=== PATIENT | female | born 1990 | race Caucasian/White ===

== ENCOUNTER → 2021-12-23 | Outpatient (CLI) | payer SELFPAY ==
[2021-12-23 13:04] LABS: BASOPHILS ABSOLUTE AUTO 0.05 K/mm3 (0.00-0.23); BASOPHILS PERCENT AUTO 1 % (0-2); EOSINOPHILS ABSOLUTE AUTO 0.02 K/mm3 (0.00-0.68); EOSINOPHILS PERCENT AUTO 0 % (0-6); Hematocrit 43.2 % (33.0-51.0); Hemoglobin 15.2 g/dL (11.5-16.0); IMMATURE GRAN ABSOLUTE AUTO 0.03 K/mm3 (0.00-0.10); IMMATURE GRAN PERCENT AUTO 0 % (0-1); LYMPHOCYTES ABSOLUTE AUTO 1.38 K/mm3 (0.84-5.20); LYMPHOCYTES PERCENT AUTO 14 % (21-46); MONOCYTES ABSOLUTE AUTO 0.56 K/mm3 (0.16-1.47); MONOCYTES PERCENT AUTO 6 % (4-13); Mean Corpuscular HGB 34.6 pg (26.0-34.0); Mean Corpuscular HGB Conc 35.2 g/dL (31.5-36.5); Mean Corpuscular Volume 98 fL (80-100); Mean Platelet Volume 10.4 fL (9.1-12.4); NEUTROPHILS ABSOLUTE AUTO 8.11 K/mm3 (1.96-9.15); NEUTROPHILS PERCENT AUTO 80 % (41-73); Platelet Count 275 K/mm3 (150-400); RDW Coefficient Variation 11.9 % (11.7-14.2); RDW Standard Deviation 43.4 fL (35.1-46.3); Red Blood Cell Count 4.39 M/mm3 (3.80-5.20); White Blood Cell Count 10.15 K/mm3 (4.00-11.30)
[2021-12-23 13:20] LABS: Alanine Aminotransfer (ALT/SGP 41 U/L (12-78); Albumin, Blood 4.7 g/dL (3.4-5.0); Albumin/Globulin Ratio 1.4 (0.8-1.8); Alk Phos 75 U/L (40-126); Anion Gap 8 mmol/L (6-16); Aspartate Aminotrans (AST/SGOT 27 U/L (12-37); Bilirubin, Total 0.8 mg/dL (0.1-1.0); Blood Urea Nitrogen 7 mg/dL (8-24); Bun/Creatinine Ratio 10.4 (12.0-20.0); CO2, Blood 28 mmol/L (21-32); Calcium, Blood 9.2 mg/dL (8.5-10.1); Chloride, Blood 98 mmol/L (98-108); Creatinine, Blood 0.67 mg/dL (0.40-1.00); Globulin, Blood 3.4 g/dL (2.2-4.0); Glomerular Filtration Rate >60 (60-); Glucose, Blood 130 mg/dL (70-99); Potassium, Blood 3.6 mmol/L (3.5-5.5); Sodium, Blood 134 mmol/L (136-145); Total Protein, Blood 8.1 g/dL (6.4-8.2)
== END ==
LOC: LAB SHORT 12:59
PROVIDERS: General Practice
DX: R53.81 Other malaise (principal)
CPT/HCPCS: 80053; 85025

== ENCOUNTER → 2022-03-14 | Outpatient (CLI) | payer SELFPAY ==
[2022-03-14 11:54] LABS: BASOPHILS ABSOLUTE AUTO 0.05 K/mm3 (0.00-0.23); BASOPHILS PERCENT AUTO 1 % (0-2); EOSINOPHILS ABSOLUTE AUTO 0.04 K/mm3 (0.00-0.68); EOSINOPHILS PERCENT AUTO 1 % (0-6); Hematocrit 38.5 % (33.0-51.0); Hemoglobin 13.8 g/dL (11.5-16.0); IMMATURE GRAN ABSOLUTE AUTO 0.06 K/mm3 (0.00-0.10); IMMATURE GRAN PERCENT AUTO 1 % (0-1); LYMPHOCYTES PERCENT AUTO 21 % (21-46); MONOCYTES ABSOLUTE AUTO 0.53 K/mm3 (0.16-1.47); MONOCYTES PERCENT AUTO 6 % (4-13); Mean Corpuscular HGB 35.1 pg (26.0-34.0); Mean Corpuscular HGB Conc 35.8 g/dL (31.5-36.5); Mean Corpuscular Volume 98 fL (80-100); Mean Platelet Volume 9.9 fL (9.1-12.4); NEUTROPHILS ABSOLUTE AUTO 5.89 K/mm3 (1.96-9.15); NEUTROPHILS PERCENT AUTO 71 % (41-73); Platelet Count 303 K/mm3 (150-400); RDW Coefficient Variation 12.2 % (11.7-14.2); RDW Standard Deviation 44.2 fL (35.1-46.3); Red Blood Cell Count 3.93 M/mm3 (3.80-5.20); White Blood Cell Count 8.27 K/mm3 (4.00-11.30)
[2022-03-14 12:48] LABS: Albumin, Blood 4.1 g/dL (3.4-5.0); Albumin/Globulin Ratio 1.2 (0.8-1.8); Bilirubin, Total 1.3 mg/dL (0.1-1.0); Calcium, Blood 8.7 mg/dL (8.5-10.1); Creatinine, Blood 0.67 mg/dL (0.40-1.00); Globulin, Blood 3.4 g/dL (2.2-4.0); Potassium, Blood 3.3 mmol/L (3.5-5.5); Thyroid Stimulating Hormone 1.74 uIU/mL (0.360-4.800); Total Protein, Blood 7.5 g/dL (6.4-8.2)
== END ==
LOC: LAB SHORT 11:46
PROVIDERS: Physician Assistant Surgical
DX: I10 Essential (primary) hypertension (principal); R07.9 Chest pain, unspecified
CPT/HCPCS: 80053; 84443; 84484; 85025

== ENCOUNTER 2023-08-28 15:34 | Inpatient (IN) | payer OTHER ==
[~2023-08-28] VITALS: Ht 172.7 cm; Wt 71.0 kg
[2023-08-28 16:56] LABS: BASOPHILS ABSOLUTE AUTO 0.02 K/mm3 (0.00-0.23); BASOPHILS PERCENT AUTO 1 % (0-2); EOSINOPHILS PERCENT AUTO 0 % (0-6); Hemoglobin 7.5 g/dL (11.5-16.0); IMMATURE GRAN ABSOLUTE AUTO 0.03 K/mm3 (0.00-0.10); IMMATURE GRAN PERCENT AUTO 1 % (0-1); LYMPHOCYTES ABSOLUTE AUTO 0.69 K/mm3 (0.84-5.20); LYMPHOCYTES PERCENT AUTO 16 % (21-46); MONOCYTES ABSOLUTE AUTO 0.26 K/mm3 (0.16-1.47); MONOCYTES PERCENT AUTO 6 % (4-13); Mean Corpuscular HGB 34.6 pg (26.0-34.0); Mean Corpuscular HGB Conc 35.7 g/dL (31.5-36.5); Mean Corpuscular Volume 97 fL (80-100); Mean Platelet Volume 10.8 fL (9.1-12.4); NEUTROPHILS ABSOLUTE AUTO 3.35 K/mm3 (1.96-9.15); NEUTROPHILS PERCENT AUTO 77 % (41-73); NRBC ABSOLUTE 0.07 K/mm3 (0.00-0.02); NRBC Auto 1.6 /100 WBC (0.0-0.2); Platelet Count 171 K/mm3 (150-400); RDW Coefficient Variation 11.9 % (11.7-14.2); RDW Standard Deviation 42.3 fL (35.1-46.3); Red Blood Cell Count 2.17 M/mm3 (3.80-5.20); White Blood Cell Count 4.35 K/mm3 (4.00-11.30)
[2023-08-28 17:29] LABS: Albumin, Blood 3.5 g/dL (3.4-5.0); Bilirubin, Total 5.3 mg/dL (0.1-1.0); Bun/Creatinine Ratio 9.2 (12.0-20.0); Calcium, Blood 11.3 mg/dL (8.5-10.1); Creatinine, Blood 0.76 mg/dL (0.40-1.00); Globulin, Blood 3.6 g/dL (2.2-4.0); Potassium, Blood 2.6 mmol/L (3.5-5.5); Total Protein, Blood 7.1 g/dL (6.4-8.2)
[2023-08-28 20:28] VITALS: BP 129/92
[2023-08-28] MEDS ORDERED: HYDPAM25 PO (20:56)
[2023-08-28] MEDS ORDERED: METO25 PO (20:57)
--- NOTE | 2023-08-28 21:00 | NUR ---
ARRIVAL TO PCU 7 PT ARRIVED TO PCU7 AT APPROXIMATELY 2024. PT TRANSFERED FROM ER [facility] TO HOSPITAL BED WITH SBA. PT A&Ox4, ORIENTED TO CALL LIGHT/UNIT, COMMUNICATES NEEDS APPROPRIATELY. BP STABLE, SINUS TACH 100-120's, DENIES CP/PRESSURE. SpO2> 92% RA, DENIES SOB. CIWA 7. BED IN LOWEST POSITION, CALL LIGHT IN REACH, BED ALARM ON.
[2023-08-28 21:18] LABS: Bun/Creatinine Ratio 9.5 (12.0-20.0); Calcium, Blood 10.7 mg/dL (8.5-10.1); Creatinine, Blood 0.73 mg/dL (0.40-1.00)
[2023-08-28 23:08] VITALS: BP 128/91
[2023-08-29] VITALS (13 sets, daily range): BP systolic 111–125; BP diastolic 48–99
[2023-08-29 03:32] LABS: Hemoglobin 6.4 g/dL (11.5-16.0); Mean Corpuscular HGB 34.6 pg (26.0-34.0); Mean Corpuscular HGB Conc 35.6 g/dL (31.5-36.5); Mean Corpuscular Volume 97 fL (80-100); Mean Platelet Volume 10.9 fL (9.1-12.4); NRBC ABSOLUTE 0.07 K/mm3 (0.00-0.02); NRBC Auto 1.5 /100 WBC (0.0-0.2); Platelet Count 147 K/mm3 (150-400); RDW Coefficient Variation 11.9 % (11.7-14.2); RDW Standard Deviation 42.1 fL (35.1-46.3); RETICULOCYTE ABSOLUTE 0.0485 M/mm3 (0.0200-0.1100); RETICULOCYTE COUNT PERCENT 2.62 % (0.50-2.50); Red Blood Cell Count 1.85 M/mm3 (3.80-5.20); White Blood Cell Count 4.59 K/mm3 (4.00-11.30)
[2023-08-29 03:46] LABS: International Normalized Ratio 1.31; Prothrombin Time Results 13.5 Sec (9.7-11.5)
[2023-08-29 04:18] LABS: Percent Saturation 95.2 % (15.0-50.0)
[2023-08-29 04:19] LABS: Thyroid Stimulating Hormone 12.6 uIU/mL (0.360-4.800)
[2023-08-29 04:47] LABS: Albumin, Blood 3.1 g/dL (3.4-5.0); Albumin/Globulin Ratio 1.1 (0.8-1.8); Bilirubin, Total 4.7 mg/dL (0.1-1.0); Bun/Creatinine Ratio 8.5 (12.0-20.0); Calcium, Blood 10.4 mg/dL (8.5-10.1); Creatinine, Blood 0.7 mg/dL (0.40-1.00); Globulin, Blood 2.9 g/dL (2.2-4.0); Magnesium, Blood 1.1 mg/dL (1.6-2.4); Phosphorus, Blood 0.4 mg/dL (2.5-4.9); Potassium, Blood 2.8 mmol/L (3.5-5.5)
--- NOTE | 2023-08-29 05:06 | NUR ---
SHIFT SUMMARY SEE PREVIOUS NOTE. PT A&Ox4, CALLS AND COMMUNICATES NEEDS APPROPRIATELY. BP STABLE, SR-ST 90-110's, DENIES CP/PRESSURE. SpO2> 92% RA, DENIES SOB. CIWA 6-11, MEDICATED PER EMAR. CONTINENT OF URINE, NO BM THIS SHIFT. 1 ASSIST TO BATHROOM. NO S/S OF BLEEDING. NO OTHER EVENTS, WILL REPORT TO ONCOMING RN.
[2023-08-29 10:14] LABS: BASOPHILS ABSOLUTE AUTO 0.03 K/mm3 (0.00-0.23); BASOPHILS PERCENT AUTO 1 % (0-2); EOSINOPHILS ABSOLUTE AUTO 0.01 K/mm3 (0.00-0.68); EOSINOPHILS PERCENT AUTO 0 % (0-6); Hematocrit 26.1 % (33.0-51.0); Hemoglobin 9.4 g/dL (11.5-16.0); IMMATURE GRAN PERCENT AUTO 2 % (0-1); LYMPHOCYTES ABSOLUTE AUTO 0.82 K/mm3 (0.84-5.20); LYMPHOCYTES PERCENT AUTO 15 % (21-46); MONOCYTES ABSOLUTE AUTO 0.38 K/mm3 (0.16-1.47); MONOCYTES PERCENT AUTO 7 % (4-13); Mean Corpuscular HGB 34.3 pg (26.0-34.0); Mean Corpuscular Volume 95 fL (80-100); Mean Platelet Volume 10.9 fL (9.1-12.4); NEUTROPHILS ABSOLUTE AUTO 4.21 K/mm3 (1.96-9.15); NEUTROPHILS PERCENT AUTO 76 % (41-73); NRBC Auto 1.8 /100 WBC (0.0-0.2); Platelet Count 157 K/mm3 (150-400); RDW Coefficient Variation 13.4 % (11.7-14.2); RDW Standard Deviation 46.3 fL (35.1-46.3); Red Blood Cell Count 2.74 M/mm3 (3.80-5.20); White Blood Cell Count 5.55 K/mm3 (4.00-11.30)
--- NOTE | 2023-08-29 10:49 | NUR ---
PATIENT ALERT TO SELF, FAMILY, AND PLACE. AT TIMES VERY CONFUSED AND TRYING TO GET OUT OF BED. MOM AT BEDSIDE. DURING THIS AM ASSESSMENT PATIENT DENIES OVERALL PAIN. DENIES NUMBNESS/TINGLING. UP WITH 2 PERSON ASSIST TO STAND AND PIVOT TO [facility] [place] VERY UNSTEADY ON FEET. BED ALARM IN PLACE. CIWA SCORING 8-14 AT THIS TIME. PATIENT HAVING TREMORS, CONFUSION, AGITATION, ANXIETY, SLIGHT HEADACHE AND OCCASIONAL NAUSEA. SEE CIWA SCORING AND EMAR FOR PO LIBRIUM AND IV ATIVAN ADMINISTRATION. PATIENT AT THIS POINT HAS CLAMED SLIGHTLY AND HAS STOPPED PULLING AT LINES AND CORDS. MOM REMAINS AT BEDSIDE. PATIENT REPORTS DRINKING 12 SELTZERS PER DAY WELL A LARGE AMOUNT OF VODKA. TELE SHOWING SR/ST WITH HR 90-110'S, UP TO 140'S WITH SEVERE AGITATION. BP STABLE. PPP. DENIES CHEST PAIN/PRESSURE/PALPITATION. ON ROOM AIR, CONTINUOUS PULSE OX READING 96-100%. EVEN AND UNLABORED BREATHING. LUNGS SOUNDING CLEAR. DENIES ABDOMINAL PAIN/NAUSEA. BOWEL TONES PRESENT. VOIDING WNL. POOR APPEATITE, ONLY EATING 10% BREAKFAST THIS AM. SWALLOWING PILLS SAFELY AT THIS TIME. SCATTERED BRUISING, REPORTED FROM MULTIPLE FALLS. LARGE BRUISE TO LEFT RIBS/BACK.
--- NOTE | 2023-08-29 11:27 | NUR ---
PATIENT CIWA SCORING 15 AT THIS TIME. PATIENT CONTINUALLY PULLING AT LINES/CORDS, TRYING TO GET OUT OF BED, EXPRESSING ANXIETY AND AGITATION. DR. NASH CALLED TO EXPAND ATIVANA ND LIBRIUM ORDER SET. IV ATIVAN AND PO LIBRIUM GIVEN. WILL CONTINUE TO MONITOR ADA CIWA SCORING. THIS RN AT BEDSIDE.
--- NOTE | 2023-08-29 13:21 | NUR ---
PATIENT CIWA TRENDING DOWN 7-8 AT THIS TIME. FAMILY REMAINS AT BEDSIDE. VITAL SIGNS REMAIN STABLE. NS INFUSING PER EMAR.
--- NOTE | 2023-08-29 14:14 | NUR ---
PATIENT SLEEPING AT THIS TIME. FAMILY REMAINS AT BEDSIDE.
--- NOTE | 2023-08-29 16:02 | NUR ---
PATIENT CONTINUES TO BE SLEEPY/DROWSY AT THIS TIME. VITALS SIGNS STABLE. FAMILY REMAINS AT BEDSIDE. OCCASIONAL STIRRING AND SHIFTING IN BED. NS CONTINUES TO INFUSE PER EMAR.
--- NOTE | 2023-08-29 18:14 | NUR ---
SHIFT SUMMARY: SEE PREVIOUS NOTES FOR UPDATES. PATIENT MEDICATED THROUGHOUT SHIFT PER CIWA SCORE/ALCOHOL WITHDRAWL SYMPTOMS. PATIENT SLEEPING AT THIS TIME. CONTINUES TO BE VERY AGITATED, ANXIOUS AND CONFUSED WHEN AWAKE PULLING AT LINES/CORDS AND TRYING TO GET OUT OF BED. BED ALARM REMAINS ON. FAMILY REMAINS AT BEDSIDE THROUGHOUT SHIFT. VITAL SIGNS STABLE. HR 90-110'S. SR/ST. ON ROOM AIR SATING ABOVE 95%. BP STABLE. USING BEDPAN NEEDED. ATTENDS IN PLACE. CALL LIGHT IN REACH. BED IN LOW LOCKED POSITION. SEIZURE PRECAUTIONS IN PLACE.
--- NOTE | 2023-08-29 20:30 | NUR ---
ASSUMPTION OF CARE / CIWA / MOVE FROM PCU7 TO PCU9 PT SLEEPING DURING BEDSIDE SHIFT REPORT. FAMILY AT BEDSIDE. AT APPROXIMATELY 1999, PT SET OFF BEDALARM. PT CONFUSED AND AGITATED TRYING TO GET OUT OF BED AND RIPPING AT LINES AND GOWN. ADMINISTERED LIBRIUM & ATIVAN PER CIWA, SEE EMAR. TRANSFERED PT TO PCU 9 TO BE CLOSER TO NURSES STATION. BP STABLE, SINUS TACH 100's, UP TO 150's WHEN AGITIATED, DENIES CP/PRESSURE. SpO2> 92% RA, DENIES SOB. PT NOT DIRECTABLE OR ABLE TO BE REORIENTED. AT APPROXIMATELY 2140 STILL TRYING GET OUT OF BED AND IS STILL AGITATED AND CONFUSED. MULTPILE STAFF IN ROOM TRYING TO CALM PT DOWN. ADMINISTED ATIVAN PER CIWA, SEE EMAR. PHYSICIAN NOTIFIED THAT PT IS NEARING MAX AMOUNT OF ATIVAN AND LIBRIUM FOR A 24hr PERIOD, ORDERS PLACED. BED IN LOWEST POSITION, CALL LIGHT IN REACH, BED ALARM ON.
[2023-08-30] VITALS (64 sets, daily range): BP systolic 70–121; BP diastolic 51–91
--- NOTE | 2023-08-30 03:30 | NUR ---
PT ARRIVES TO ROOM ICU 6 FROM PCU 9 AT 0258 THIS MORNING. REPORT RECEIVED AT BEDSIDE. PT SLIDE TRANSFERED TO BED. PT NEEDS COACHING TO REMAIN CALM, AND WITH BEING SITUATED IN BED AND APPLICATION OF MONITORING. PT ARRIVES WITH LOCKED RESTRAINTS. PUREWICK PLACED SECONDARY TO PT BECOMING INCONTINENT TO URINE. WILL REVIEW CHART AND PLAN OF CARE FOR THIS PT.
[2023-08-30 04:27] LABS: Hematocrit 22.2 % (33.0-51.0); Hemoglobin 7.9 g/dL (11.5-16.0); Mean Corpuscular HGB 33.9 pg (26.0-34.0); Mean Corpuscular HGB Conc 35.6 g/dL (31.5-36.5); Mean Corpuscular Volume 95 fL (80-100); Mean Platelet Volume 10.6 fL (9.1-12.4); NRBC ABSOLUTE 0.05 K/mm3 (0.00-0.02); NRBC Auto 0.8 /100 WBC (0.0-0.2); Platelet Count 171 K/mm3 (150-400); RDW Coefficient Variation 14.4 % (11.7-14.2); RDW Standard Deviation 48.8 fL (35.1-46.3); Red Blood Cell Count 2.33 M/mm3 (3.80-5.20); White Blood Cell Count 6.12 K/mm3 (4.00-11.30)
--- NOTE | 2023-08-30 04:35 | NUR ---
TRANSFER TO ICU 6 SEE PREVIOUS NOTE. PTs CIWA 20's, MEDICATED PER EMAR. PT REFUSING TO TAKE PILLS AND HAS REACHED 23mg IN 24hrs AND IS REQUIRING MORE MEDICATION. PHYSICIAN NOTIFIED, ORDERS PLACED TO TRANSFER PT TO ICU. MEDICAL ASSEMBLER CALLED TO NOTIFY FAMILY OF TRANSFER. ALL PT BELONGINGS GATHERED, TRANSFERED PT VIA HOSPITAL BED BY 3 CLINICAL STAFF MEMEBERS. REPORT GIVEN TO CREATIVE DESIGNER AT BEDSIDE.
[2023-08-30 05:07] LABS: Free Thyroxine 1.08 ng/dL (0.70-1.60); Magnesium, Blood 1.7 mg/dL (1.6-2.4)
[2023-08-30 05:28] LABS: Albumin, Blood 2.9 g/dL (3.4-5.0); Blood Urea Nitrogen 3 mg/dL (8-24); CO2, Blood 32 mmol/L (21-32); Chloride, Blood 100 mmol/L (98-108); Glomerular Filtration Rate 121 (60-); Glucose, Blood 118 mg/dL (70-99); Potassium, Blood 2.7 mmol/L (3.5-5.5)
[2023-08-30 05:30] LABS: Anion Gap 6 mmol/L (6-16); Phosphorus, Blood 0.4 mg/dL (2.5-4.9); Sodium, Blood 138 mmol/L (136-145)
--- NOTE | 2023-08-30 05:59 | NUR ---
PLACED PT TO PRECEDEX DRIP AT 0.4 MCG'S/KG/HOUR. PT CURRENTLY RESTING IN BED. STARTED PERIPHERAL IV IN RIGHT FOREARM. NO VOID OF YET SINCE ARRIVAL TO UNIT. PT'S PHOS AND POTASSIUM LEVEL LOW. CALL TO DR EMERY. ORDERS RECEIVED. WILL CONTINUE TO MONITOR PT, AND WILL REPORT OFF TO ONCOMING RN.
--- NOTE | 2023-08-30 08:26 | NUR ---
[place] of Care: Care assumed at 0700hr. Patient sleeping/sedated with precedex gtt at 0.4 mcg/kg/hr. Patient attempts to open eyes to verbal stimuli, moves all extremities. Otherwise not following any commands. Will decrease precedex gtt to better assess neuro status and ETOH withdrawal. Peripheral IV's x2 patent and intact. Purwick urinary device in place, draining clear yellow urine. Dr. walker to bedside this morning. Received order to d/c PO medications and order IV Thiamine 100mg daily. Will continue to monitor.
[2023-08-30 14:12] LABS: Magnesium, Blood 1.6 mg/dL (1.6-2.4)
[2023-08-30 14:21] LABS: Potassium, Blood 3.8 mmol/L (3.5-5.5)
[2023-08-30 14:22] LABS: Phosphorus, Blood 3.4 mg/dL (2.5-4.9)
--- NOTE | 2023-08-30 17:40 | NUR ---
Shift Summary: Patient showed significant improvement throughout shift. This morning, patient very sedated and minimally responsive on precedex at 0.4mcg/kg/hr. Precedex titrated down, then off at approx [phone], remained off precedex gtt for remainder of shift. Patient then able to rouse, remains drowsy when awake but oriented to self, place, and situation. Slightly agitated with staff and occasionally not following directions, but overall cooperative with care/directions. X2 prn librium and x1 prn Ativan given with good effect. Ate approx 15-255 of meals without difficulty. Voided using bed-king without difficulty. Family at bedside. Will continue to monitor until report to NOC shift RN.
[2023-08-31] VITALS (10 sets, daily range): BP systolic 98–124; BP diastolic 73–105
[2023-08-31 04:26] LABS: Hematocrit 24.9 % (33.0-51.0); Hemoglobin 8.4 g/dL (11.5-16.0); Mean Corpuscular HGB 33.6 pg (26.0-34.0); Mean Corpuscular HGB Conc 33.7 g/dL (31.5-36.5); Mean Platelet Volume 10.4 fL (9.1-12.4); NRBC ABSOLUTE 0.11 K/mm3 (0.00-0.02); NRBC Auto 1.4 /100 WBC (0.0-0.2); Platelet Count 214 K/mm3 (150-400); RDW Coefficient Variation 14.9 % (11.7-14.2); RDW Standard Deviation 54.3 fL (35.1-46.3); White Blood Cell Count 7.74 K/mm3 (4.00-11.30)
[2023-08-31 04:42] LABS: Mean Corpuscular Volume 100 fL (80-100)
[2023-08-31 05:03] LABS: Albumin, Blood 2.9 g/dL (3.4-5.0); Anion Gap 7 mmol/L (6-16); Blood Urea Nitrogen 3 mg/dL (8-24); Bun/Creatinine Ratio 4.8 (12.0-20.0); CO2, Blood 32 mmol/L (21-32); Calcium, Blood 8.3 mg/dL (8.5-10.1); Chloride, Blood 101 mmol/L (98-108); Creatinine, Blood 0.63 mg/dL (0.40-1.00); Glomerular Filtration Rate 119 (60-); Glucose, Blood 128 mg/dL (70-99); Magnesium, Blood 1.4 mg/dL (1.6-2.4); Phosphorus, Blood 2.1 mg/dL (2.5-4.9); Potassium, Blood 3.1 mmol/L (3.5-5.5); Sodium, Blood 140 mmol/L (136-145)
--- NOTE | 2023-08-31 06:28 | NUR ---
END OF SHIFT SUMMARY A/O X3. WAKES FROM SLEEP SLIGHTLY CONFUSED. EASILY REORIENTED. VSS. SINUS TACHY MOST OF THE NIGHT WITH HR 100'S TO 130'S DEPENDING ON PT MOVEMENT OR BEING AWAKE. CIWA OF 8 MID SHIFT WITH TREMORS AND HALLUCINATION OF FOOD. OTHERWISE CIWA OF 0-1. PT GETS VERY AGITATED IF ASKED TO USE BEDPAN. PT IS UNSTABLE ON FEET REQUIRING 2 STAFF MEMBERS TO TRANSFER TO BEDSIDE COMMODE. NO OTHER CHANGES THIS SHIFT. WILL CONTINUE TO MONITOR UNTIL REPORT GIVEN TO AM RN.
--- NOTE | 2023-08-31 12:55 | NUR ---
REASSESSMENT/TRANSFER PT SPENT THE MORNING SITTING UP IN THE CHAIR. SHE IS AWAKE AND ORIENTED , BUT GROGGY AND SLOW IN HER MOVEMENTS. HER CIWAA WAS 5, BUT PT IS STILL HAVING TREMORS SO MEDICATED WITH LIBRIUM THIS MORNING TO MAINTAIN CONTROL OF HER WITHDRAWAL SYMPTOMS. LUNGS ARE CLEAR, RA, BP STABLE, SINUS TACH WITH RATE IN THE LOW 100S AT REST, UP TO 1TEENS WITH ACTIVITY. EATING ABOUT 10% OF DIET. CONTINENT OF URINE. DR. RAYMOND ROUNDED ON PT TODAY AND MADE PT PCU STATUS. REPORT GIVEN TO LIDA LEMONS. PT TRANSFERRED VIA WC TO PCU 19. PT'S MOM AT THE BEDSIDE AND AWARE OF TRANSFER.
--- NOTE | 2023-08-31 17:45 | NUR ---
PT TRANSFERRED TO THE ROOM AT APPROX 1300, PT ALERT AND ORIENTED X3, FAMILY AT THE BEDSIDE ALERNATING VISITS. VITALS HRR SR 90-100'S, SBP 90-100'S, SATS ABOVE 95% ON RA AFEBRILE. PT RESTED MOSTLY FOR THE REST OF THE SHIFT, PER PT'S MOTHER PT HASNT SLEPT WELL SINCE LAST NIGHT. LAST CIWA AT 3. PT HAS BEEN CALLING AND ANSWERING QUESTIONS APPROPRIATELY. NO COMPLAINTS AT THIS TIME. CALL LIGHTS IN REACH WILL REPORT TO ONCOMING SHIFT
[2023-09-01 04:00] VITALS: BP 107/78
[2023-09-01 04:51] LABS: BASOPHILS ABSOLUTE AUTO 0.05 K/mm3 (0.00-0.23); BASOPHILS PERCENT AUTO 1 % (0-2); EOSINOPHILS ABSOLUTE AUTO 0.01 K/mm3 (0.00-0.68); EOSINOPHILS PERCENT AUTO 0 % (0-6); Hematocrit 24.1 % (33.0-51.0); Hemoglobin 8.1 g/dL (11.5-16.0); IMMATURE GRAN ABSOLUTE AUTO 0.07 K/mm3 (0.00-0.10); IMMATURE GRAN PERCENT AUTO 1 % (0-1); LYMPHOCYTES ABSOLUTE AUTO 1.18 K/mm3 (0.84-5.20); LYMPHOCYTES PERCENT AUTO 17 % (21-46); MONOCYTES ABSOLUTE AUTO 0.84 K/mm3 (0.16-1.47); MONOCYTES PERCENT AUTO 12 % (4-13); Mean Corpuscular HGB 33.8 pg (26.0-34.0); Mean Corpuscular HGB Conc 33.6 g/dL (31.5-36.5); Mean Corpuscular Volume 100 fL (80-100); NEUTROPHILS PERCENT AUTO 70 % (41-73); NRBC ABSOLUTE 0.07 K/mm3 (0.00-0.02); Platelet Count 230 K/mm3 (150-400); RDW Coefficient Variation 16.1 % (11.7-14.2); RDW Standard Deviation 56.2 fL (35.1-46.3); White Blood Cell Count 7.05 K/mm3 (4.00-11.30)
[2023-09-01 05:20] LABS: Albumin, Blood 2.7 g/dL (3.4-5.0); Albumin/Globulin Ratio 0.9 (0.8-1.8); Bilirubin, Total 6.3 mg/dL (0.1-1.0); Bun/Creatinine Ratio 5.3 (12.0-20.0); Creatinine, Blood 0.57 mg/dL (0.40-1.00); Magnesium, Blood 1.8 mg/dL (1.6-2.4); Phosphorus, Blood 3.6 mg/dL (2.5-4.9); Potassium, Blood 3.2 mmol/L (3.5-5.5); Total Protein, Blood 5.7 g/dL (6.4-8.2)
--- NOTE | 2023-09-01 05:26 | NUR ---
SHIFT SUMMARY PT LETHARGIC THROUGHOUT SHIFT BUT ABLE TO ANSWER MOST ORIENTATION QUESTIONS. PT SAT OF BED ALARM MULTIPLE TIMES DURING SHIFT SHE WOULD CONSTANTLY TRY TO SIT AT EOB OR REACH FOR ITEMS ON TABLE, BED ALARM VERY SENSITIVE. PT ABLE TO STAND TO AMBULATE TO BS VIA [place] AND 2 STAFF MEMBERS, GAIT WEAK AND IMPAIRED, TOLERATED FAIR. PT VSS THROUGHOUT SHIFT. NO REPORT OF CHEST PAIN/PRESSURE. NO REPORT OF SOB/DYPNEA. PT CIWAS RANGED 3-4. NS RUNNING PER ORDER. NO ACCUTE EVENTS DURING SHIFT.
[2023-09-01 07:38] VITALS: BP 114/85
[2023-09-01] MEDS ORDERED: MULVITA PO ×2 (12:04)
[2023-09-01] MEDS ORDERED: B-1100 M1 PO (12:09)
--- NOTE | 2023-09-01 13:14 | NUR ---
PT DISCHARGE TO HOME WITH HOME HEALTH ORDERS, PHYSICAL THERAPIST ABLE TO WORK WITH THE PT, RECOMMENDED HOME HEALTH AND PT'S FAMILY'S ASSISTANCE 24HRS/DAY. PT'S SISTER CAME TO PRICING SUPERVISOR PT VERIFIED THAT PT HAS FAMILY'S ASSISTANCE AND EQUIPMENTS SHE NEEDED AT HOME. PT CIWA HAS BEEN 4-5. PT COOPERATIVE WITH CARES, VITALS HAS BEEN STABLE. 1PA FOR TRANSFERS VIA WALKER. PRESCRIPTION SENT TO [facility], INSTRUCTION DISCLOSED WITH BOTH PT AND SISTER AT THE BEDSIDE. LAB FF-UP FOR BMP AND MG 09/04/23, AND FF-UP WITH PCP. PT ACCOMPANIED VIA WHEELCHAIR FOR TRANSFER ALL BELONGINGS SENT WITH THE PT.
== END 2023-09-01 12:23 | disposition home health service (06) | DRG 897 ==
LOC: ER 15:34 → PCU 18:27 → ICUE 08-30 03:00 → PCU 08-31 13:07
PROVIDERS: Family Medicine; Hospitalist; Physician Assistant; ADMIT Internal Medicine
PROC: HZ2ZZZZ Detoxification Services for Substance Abuse Treatment (ICD-10-PCS; principal; 2023-08-28)
PROC: 30233N1 Transfusion of Nonautologous Red Blood Cells into Peripheral Vein, Percutaneous Approach (ICD-10-PCS; 2023-08-28)
DX: F10.131 Alcohol abuse with withdrawal delirium (principal); E87.1 Hypo-osmolality and hyponatremia; E83.42 Hypomagnesemia; E87.6 Hypokalemia; E83.39 Other disorders of phosphorus metabolism; D64.9 Anemia, unspecified; R94.5 Abnormal results of liver function studies; W19.XXXA Unspecified fall, initial encounter; R74.01 Elevation of levels of liver transaminase levels; I10 Essential (primary) hypertension; F41.9 Anxiety disorder, unspecified; F17.210 Nicotine dependence, cigarettes, uncomplicated
CPT/HCPCS: 36415; 76705; 80048; 80053; 80069; 82607; 82728; 82746; 83540; 83550; 83735; 84100; 84132; 84439; 84443; 85025; 85027; 85045; 85610; 86850; 86900; 86901; 86923; 96361; 96365; 97110; 97116; 97162; 97530; 99285-25; A9270; J2060; J2560; J3411; J3475; J3480; J7030; J7040; J7050; J7060; J7070; P9016

== ENCOUNTER 2023-09-20 15:38 | Inpatient (IN) | payer OTHER ==
[~2023-09-20] VITALS: Ht 172.7 cm; Wt 79.0 kg
[~2023-09-20 15:38] MED LIST: B-1100 M1 PO; HYDPAM25 PO; METO25 PO; MULVITA PO
[2023-09-20 16:44] LABS: BASOPHILS PERCENT AUTO 1 % (0-2); EOSINOPHILS ABSOLUTE AUTO 0.07 K/mm3 (0.00-0.68); EOSINOPHILS PERCENT AUTO 0 % (0-6); IMMATURE GRAN ABSOLUTE AUTO 0.19 K/mm3 (0.00-0.10); IMMATURE GRAN PERCENT AUTO 1 % (0-1); LYMPHOCYTES PERCENT AUTO 9 % (21-46); MONOCYTES ABSOLUTE AUTO 0.91 K/mm3 (0.16-1.47); MONOCYTES PERCENT AUTO 5 % (4-13); Mean Corpuscular HGB 31.8 pg (26.0-34.0); Mean Corpuscular HGB Conc 32.1 g/dL (31.5-36.5); Mean Corpuscular Volume 99 fL (80-100); Mean Platelet Volume 9.8 fL (9.1-12.4); NEUTROPHILS ABSOLUTE AUTO 17.24 K/mm3 (1.96-9.15); NEUTROPHILS PERCENT AUTO 85 % (41-73); Platelet Count 579 K/mm3 (150-400); RDW Coefficient Variation 16.5 % (11.7-14.2); RDW Standard Deviation 60.2 fL (35.1-46.3); Red Blood Cell Count 2.83 M/mm3 (3.80-5.20); White Blood Cell Count 20.41 K/mm3 (4.00-11.30)
[2023-09-20 17:04] LABS: Albumin, Blood 2.1 g/dL (3.4-5.0); Albumin/Globulin Ratio 0.5 (0.8-1.8); Bilirubin, Total 3.5 mg/dL (0.1-1.0); Bun/Creatinine Ratio 8.7 (12.0-20.0); Calcium, Blood 8.3 mg/dL (8.5-10.1); Creatinine, Blood 0.46 mg/dL (0.40-1.00); Globulin, Blood 4.3 g/dL (2.2-4.0); Potassium, Blood 3.5 mmol/L (3.5-5.5); Total Protein, Blood 6.4 g/dL (6.4-8.2)
[2023-09-20 17:55] LABS: Source, Urine Clean Catch
[2023-09-20 18:01] LABS: Appearance, Urine Clear (Clear); Blood, Urine Neg (Neg); Color, Urine Amber (P-Yellow); Glucose Qualitative, Urine Neg (Neg); Ketones, Urine Neg (Neg); Leukocyte Esterase, Urine 1+ (Neg); Nitrite, Urine Pos (Neg); Protein, Urine 2+ (Neg); Specific Gravity, Urine 1.025 (1.003-1.022); Urobilinogen, Urine 2+ (Normal)
[2023-09-20 18:13] LABS: Bilirubin, Urine 1+ (Neg)
[2023-09-20 18:14] LABS: Bacteria Many /hpf; Red Blood Cells, Urine 0-2 /hpf (0-2); Squamous Epithelial Cells Few /hpf (Few)
[2023-09-20 23:01] LABS: International Normalized Ratio 1.27; Prothrombin Time Results 13.2 Sec (9.7-11.5)
[2023-09-20 23:04] LABS: U Amphetamine Screen Not Detected; U Barbituate Screen DETECTED; U Benzodiazapine Screen DETECTED; U Buprenorphine Screen Not Detected; U Cannabinoids Screen DETECTED; U Cocaine Screen Not Detected; U Methadone Screen Not Detected; U Methamphetamine Screen Not Detected; U Opiates Screen Not Detected; U Oxycodone Screen Not Detected; U Phencyclidine Screen Not Detected
[2023-09-20 23:06] LABS: Ethanol (Alcohol), Blood, Med <3 mg/dL; Magnesium, Blood 1.9 mg/dL (1.6-2.4)
[2023-09-21 03:13] LABS: BASOPHILS ABSOLUTE AUTO 0.07 K/mm3 (0.00-0.23); BASOPHILS PERCENT AUTO 0 % (0-2); EOSINOPHILS ABSOLUTE AUTO 0.04 K/mm3 (0.00-0.68); EOSINOPHILS PERCENT AUTO 0 % (0-6); Hemoglobin 9.2 g/dL (11.5-16.0); IMMATURE GRAN PERCENT AUTO 1 % (0-1); LYMPHOCYTES ABSOLUTE AUTO 1.49 K/mm3 (0.84-5.20); LYMPHOCYTES PERCENT AUTO 8 % (21-46); MONOCYTES PERCENT AUTO 4 % (4-13); Mean Corpuscular HGB 31.8 pg (26.0-34.0); Mean Corpuscular HGB Conc 32.9 g/dL (31.5-36.5); Mean Corpuscular Volume 97 fL (80-100); Mean Platelet Volume 9.7 fL (9.1-12.4); NEUTROPHILS ABSOLUTE AUTO 16.11 K/mm3 (1.96-9.15); NEUTROPHILS PERCENT AUTO 87 % (41-73); Platelet Count 569 K/mm3 (150-400); RDW Coefficient Variation 16.7 % (11.7-14.2); RDW Standard Deviation 58.3 fL (35.1-46.3); Red Blood Cell Count 2.89 M/mm3 (3.80-5.20); White Blood Cell Count 18.61 K/mm3 (4.00-11.30)
[2023-09-21 03:27] LABS: International Normalized Ratio 1.31; Prothrombin Time Results 13.5 Sec (9.7-11.5)
[2023-09-21 03:44] LABS: Albumin, Blood 2.1 g/dL (3.4-5.0); Albumin/Globulin Ratio 0.5 (0.8-1.8); Bilirubin, Total 3.5 mg/dL (0.1-1.0); Calcium, Blood 8.2 mg/dL (8.5-10.1); Creatinine, Blood 0.37 mg/dL (0.40-1.00); Globulin, Blood 4.4 g/dL (2.2-4.0); Potassium, Blood 3.9 mmol/L (3.5-5.5); Total Protein, Blood 6.5 g/dL (6.4-8.2)
[2023-09-21 08:05] VITALS: BP 127/98
[2023-09-21] MEDS ORDERED: GABA300 PO (08:20)
[2023-09-21] MEDS ORDERED: OMEP20ER PO (08:21)
--- NOTE | 2023-09-21 13:08 | NUR ---
SPOKE WITH DR. ACOSTA PATIENT C/O PAIN, DOCTOR NOTIFIED. HE SAID HE WOULD EVALUATE AND PLACE ORDERS NEEDED. ALSO ASKED IF THE PATIENT WILL BE HAVING A PARACENTESIS TODAY. PLAN IS TO WAIT AND RE-EVALUATE TOMORROW 09/22/23. PHARMACY NOTIFIED AND THEY WILL CANCEL ALBUMIN AND REORDER WHEN PARACENTESIS IS ORDERED.
[2023-09-21 15:18] VITALS: BP 128/94
--- NOTE | 2023-09-21 18:10 | NUR ---
SHIFT SUMMARY: PT IS A 33 YEAR OLD FEMALE HERE FOR SBP AND ACITES; POSSIBLE UTI. BEING TREATED WTIH IV ANTIBIOTICS. SHE STATES THAT SHE QUIT DRINKING ALCOHOL ABOUT A MONTH AGO AND IS FEELING MUCH BETTER. PARACENTESIS IS PENDING DUE TO PLAN TO RE-EVALUTE TOMORROW 09/22. SHE USES A FWW AT BASELINE AND MOVES INDEPENDENTLY THROUGHOUT HER ROOM. SHE C/O ABD AND LOWER BACK PAIN AND IS BEING TREATED WITH MEDICATION IN EMAR NEEDED. SHE IS ALERT AND ORIENTED X4, PLEASANT AND COOPERATIVE, AND USES CALL LIGHT APPROPRIATELY. FAMILY AND BEEN VISITING THROUGHOUT THE SHIFT. SHE IS IN BED, CALL LIGHT WITHIN REACH, NO SIGNS OR SYMPTOMS OF DISTRESS. PLAN OF CARE ONGOING.
[2023-09-21 19:23] VITALS: BP 134/99
[2023-09-22 03:37] VITALS: BP 128/85
[2023-09-22 05:27] LABS: BASOPHILS ABSOLUTE AUTO 0.08 K/mm3 (0.00-0.23); BASOPHILS PERCENT AUTO 1 % (0-2); EOSINOPHILS ABSOLUTE AUTO 0.21 K/mm3 (0.00-0.68); EOSINOPHILS PERCENT AUTO 1 % (0-6); Hematocrit 24.3 % (33.0-51.0); Hemoglobin 7.7 g/dL (11.5-16.0); IMMATURE GRAN ABSOLUTE AUTO 0.12 K/mm3 (0.00-0.10); IMMATURE GRAN PERCENT AUTO 1 % (0-1); LYMPHOCYTES ABSOLUTE AUTO 2.09 K/mm3 (0.84-5.20); LYMPHOCYTES PERCENT AUTO 14 % (21-46); MONOCYTES ABSOLUTE AUTO 0.84 K/mm3 (0.16-1.47); MONOCYTES PERCENT AUTO 5 % (4-13); Mean Corpuscular HGB 31.2 pg (26.0-34.0); Mean Corpuscular HGB Conc 31.7 g/dL (31.5-36.5); Mean Corpuscular Volume 98 fL (80-100); Mean Platelet Volume 9.8 fL (9.1-12.4); NEUTROPHILS ABSOLUTE AUTO 12.09 K/mm3 (1.96-9.15); NEUTROPHILS PERCENT AUTO 78 % (41-73); Platelet Count 526 K/mm3 (150-400); RDW Coefficient Variation 16.3 % (11.7-14.2); RDW Standard Deviation 59.4 fL (35.1-46.3); Red Blood Cell Count 2.47 M/mm3 (3.80-5.20); White Blood Cell Count 15.43 K/mm3 (4.00-11.30)
--- NOTE | 2023-09-22 05:53 | NUR ---
Rn shift summary: Patient is alert and oriented. She has done well tonight. Patient was medicated x2 Dilaudid 2 mg p.O. for abdominal and back pain with good relief and has rested after meds given. Pt taking water and tea for intake. No c/o nausia. Patient uses walker to ambulate to the BR which is her baseline. Abdomen is mod distended, active bowel tones. Calls appropriately. Will continue to monitor.
[2023-09-22 06:24] LABS: Albumin, Blood 1.8 g/dL (3.4-5.0); Albumin/Globulin Ratio 0.5 (0.8-1.8); Bilirubin, Total 2.8 mg/dL (0.1-1.0); Bun/Creatinine Ratio 10.7 (12.0-20.0); Calcium, Blood 8.1 mg/dL (8.5-10.1); Creatinine, Blood 0.38 mg/dL (0.40-1.00); Globulin, Blood 3.8 g/dL (2.2-4.0); Potassium, Blood 3.8 mmol/L (3.5-5.5); Total Protein, Blood 5.6 g/dL (6.4-8.2)
[2023-09-22 08:47] VITALS: BP 111/87
[2023-09-22 13:09] LABS: Albumin, Body Fluid 0.5 g/dL; Protein, Body Fluid 1.3 g/dL
[2023-09-22 13:14] LABS: Automated BF WBC Count 0.126 K/mm3 (0-999)
[2023-09-22 15:23] VITALS: BP 121/86
[2023-09-22 15:48] LABS: Body Fluid WBC Count 126 /mm3 (0-999)
[2023-09-22 18:04] LABS: Lactate Dehydrogenase, Body Fl 50 U/L
[2023-09-22 18:10] LABS: Glucose, Body Fluid 133 mg/dL
--- NOTE | 2023-09-22 18:20 | NUR ---
SHIFT SUMMARY: PT A&O X4. PLEASANT AND COOPERATIVE WITH CARE. PT RECEIVED IV ABX WELL PERICENTESIS THIS SHIFT REMOVING 1.6L. PT STATED SHE TOLERATED PROCEDURE WELL. C/O 7/10 PAIN ONCE THIS SHIFT IN ABD AND LOWER BACK. MEDICATED PER EMAR. INDEPENDENT WITH WALKER IN ROOM AND HALLS. CALL LIGHT IN REACH. BED IN LOWEST POSITION.
[2023-09-22 18:35] LABS: Color, Body Fluid Yellow (None-Yellow); Total Cell Count, Body Fluid 100
[2023-09-22 18:36] LABS: Appearance, Body Fluid Clear (Clear); RBC Count, Body Fluid 5 /mm3 (0-0)
[2023-09-22 19:34] VITALS: BP 127/91
[2023-09-22 19:50] LABS: pH, Body Fluid 7.9
[2023-09-23 04:36] VITALS: BP 131/99
--- NOTE | 2023-09-23 06:36 | NUR ---
SHIFT SUMMARY: PT IS ADMITTED FOR SPONTANEOUS BACTERIAL PERITONITIS AND IS A FULL CODE. SHE IS ALERT AND ABLE TO MAKE HER NEEDS KNOWN. SHE IS IND WITH A WALKER FOR ADLs. HER PAIN HAS BEEN MANAGED WITH PRN PAIN MANAGEMENT X1 THIS SHIFT. IV TO LEFT AC IS PATENT WITH A DRESSING THAT IS CDI.
[2023-09-23 07:48] VITALS: BP 112/73
[2023-09-23 15:02] VITALS: BP 125/93
--- NOTE | 2023-09-23 19:49 | NUR ---
SHIFT SUMMARY: PT A&O X4. PLEASANT AND COOPERATIVE WITH ALL CARE. PT C/O 05/06 PAIN TWICE THIS SHIFT. MEDICATED PER EMAR. NO ACUTE CHANGES. PT C/O CONTINUED ACCUMULATION OF FLUID IN ABDOMINAL AREA. HOSPITALIST AWARE. PT INDEPENDENT WITH WALKER IN ROOM AND HALLWAY. IV ABX PROVIDED W/O COMPLICATIONS. CALL LIGHT IN REACH. REPORT GIVEN TO ONCOMING NURSE.
[2023-09-23 20:13] VITALS: BP 114/79
[2023-09-24 02:59] VITALS: BP 129/94
[2023-09-24 05:47] LABS: Hemoglobin 8.6 g/dL (11.5-16.0); Mean Corpuscular HGB 30.9 pg (26.0-34.0); Mean Corpuscular HGB Conc 31.9 g/dL (31.5-36.5); Mean Corpuscular Volume 97 fL (80-100); Mean Platelet Volume 10.2 fL (9.1-12.4); Platelet Count 634 K/mm3 (150-400); RDW Coefficient Variation 16.3 % (11.7-14.2); RDW Standard Deviation 58.2 fL (35.1-46.3); Red Blood Cell Count 2.78 M/mm3 (3.80-5.20); White Blood Cell Count 14.53 K/mm3 (4.00-11.30)
[2023-09-24 06:07] LABS: HBSAG SCREEN Negative (Negative); HCV AB Non Reactive (Non Reactive); HEP A AB, IGM Negative (Negative); HEP B CORE AB, TOT Negative (Negative)
[2023-09-24 06:13] LABS: Calcium, Blood 8.3 mg/dL (8.5-10.1); Creatinine, Blood 0.38 mg/dL (0.40-1.00); Potassium, Blood 3.6 mmol/L (3.5-5.5)
--- NOTE | 2023-09-24 06:17 | NUR ---
SHIFT SUMMARY: PT IS ADMITTED FOR SPONTANEOUS BACTERIAL PERITONITIS AND IS A FULL CODE. SHE IS ALERT AND ABLE TO MAKE HER NEEDS KNOWN. UP AD-ELISHA WITH A FWW. WAS GIVEN PRN PAIN MANAGEMENT X1 THIS SHIFT. IV TO LEFT AC IS PATENT WITH A DRESSING THAT IS CDI.
[2023-09-24 08:13] VITALS: BP 125/96
--- NOTE | 2023-09-24 11:33 | NUR ---
US IN ROOM NOW, POSSIBLE PARACENTESIS TODAY AND THEN DISCHARGE HOME, DR NASH ROUNDED, PATEINT AMBULATED INDEPEDANTLY WITH FWW, STEADY GAIT, ALERT AND ORIENTED TO ALL, MEDICATED FOR PAIN, CALL LIGHT WITH IN REACH
[2023-09-24] MEDS ORDERED: CEFD300 PO (14:19)
[2023-09-24] MEDS ORDERED: FURO20 PO (14:20)
[2023-09-24] MEDS ORDERED: SPIR50 PO (14:20)
--- NOTE | 2023-09-24 15:53 | NUR ---
PATIENT DISCHARGED HOME WITH SISTERLIZZETH RN DID THE DISCHARGE PAPER WORK
== END 2023-09-24 15:25 | disposition home or self-care (01) | DRG 432 ==
LOC: ER 15:38 → ERHOLD 15:39 → MEDS 09-21 07:58
PROVIDERS: Emergency Medicine; Family Medicine; Internal Medicine; Student in an Organized Health Care Education/Training Program; ADMIT Student in an Organized Health Care Education/Training Program
PROC: 0W9G3ZZ Drainage of Peritoneal Cavity, Percutaneous Approach (ICD-10-PCS; principal; 2023-09-22)
DX: K70.11 Alcoholic hepatitis with ascites (principal); K65.2 Spontaneous bacterial peritonitis; N39.0 Urinary tract infection, site not specified; F10.10 Alcohol abuse, uncomplicated; K70.0 Alcoholic fatty liver; F41.9 Anxiety disorder, unspecified; F17.200 Nicotine dependence, unspecified, uncomplicated; I10 Essential (primary) hypertension; K21.9 Gastro-esophageal reflux disease without esophagitis; Y90.0 Blood alcohol level of less than 20 mg/100 ml; Z88.5 Allergy status to narcotic agent
CPT/HCPCS: 36415; 49083; 74176; 76705; 80048; 80053; 81001; 81025; 82042; 82140; 82945; 83605; 83615; 83690; 83735; 83986; 84100; 84145; 84157; 85025; 85027; 85610; 86704; 86708; 86803; 87040; 87070; 87077; 87086; 87186; 87205; 87340; 89051; 93005; 93010; 96365; 96366; 96372; 96375; 99285-25; A9270; G0378; J0696; J1170; J1650; J2405

== ENCOUNTER 2023-11-18 17:43 | Emergency (ER) | payer OTHER ==
[~2023-11-18] VITALS: Ht 172.7 cm; Wt 68.0 kg
[~2023-11-18 17:43] MED LIST changes: +CEFD300 PO; +FURO20 PO; +GABA300 PO; +OMEP20ER PO; +SPIR50 PO
[2023-11-18 18:58] LABS: BASOPHILS ABSOLUTE AUTO 0.05 K/mm3 (0.00-0.23); BASOPHILS PERCENT AUTO 1 % (0-2); EOSINOPHILS ABSOLUTE AUTO 0.07 K/mm3 (0.00-0.68); EOSINOPHILS PERCENT AUTO 1 % (0-6); Hematocrit 27.7 % (33.0-51.0); Hemoglobin 9.3 g/dL (11.5-16.0); IMMATURE GRAN ABSOLUTE AUTO 0.04 K/mm3 (0.00-0.10); IMMATURE GRAN PERCENT AUTO 0 % (0-1); LYMPHOCYTES ABSOLUTE AUTO 2.09 K/mm3 (0.84-5.20); LYMPHOCYTES PERCENT AUTO 20 % (21-46); MONOCYTES ABSOLUTE AUTO 0.54 K/mm3 (0.16-1.47); MONOCYTES PERCENT AUTO 5 % (4-13); Mean Corpuscular HGB 29.3 pg (26.0-34.0); Mean Corpuscular HGB Conc 33.6 g/dL (31.5-36.5); Mean Corpuscular Volume 87 fL (80-100); Mean Platelet Volume 9.6 fL (9.1-12.4); NEUTROPHILS ABSOLUTE AUTO 7.81 K/mm3 (1.96-9.15); NEUTROPHILS PERCENT AUTO 74 % (41-73); Platelet Count 370 K/mm3 (150-400); RDW Coefficient Variation 20.4 % (11.7-14.2); RDW Standard Deviation 63.2 fL (35.1-46.3); Red Blood Cell Count 3.17 M/mm3 (3.80-5.20)
[2023-11-18 19:23] LABS: Albumin/Globulin Ratio 0.5 (0.8-1.8); Bilirubin, Total 1.2 mg/dL (0.1-1.0); Bun/Creatinine Ratio 7.8 (12.0-20.0); Calcium, Blood 7.7 mg/dL (8.5-10.1); Creatinine, Blood 0.52 mg/dL (0.40-1.00); Globulin, Blood 4.3 g/dL (2.2-4.0); Potassium, Blood 3.2 mmol/L (3.5-5.5); Total Protein, Blood 6.3 g/dL (6.4-8.2)
[2023-11-19 00:28] VITALS: BP 126/99
[2023-11-19] MEDS ORDERED: PENVK500 PO (01:27)
== END 2023-11-19 01:38 | disposition home or self-care (01) ==
LOC: ER 17:43
PROVIDERS: Physician Assistant
DX: R18.8 Other ascites (principal); K04.7 Periapical abscess without sinus; R00.0 Tachycardia, unspecified; R42 Dizziness and giddiness; Z79.899 Other long term (current) drug therapy; Z88.5 Allergy status to narcotic agent
CPT/HCPCS: 74177; 80053; 84703; 85025; 99284-25; A9270; Q9967